=== PATIENT | male | born 1970 | race Caucasian/White ===

== ENCOUNTER 2018-08-01 16:32 | Emergency (ER) | payer OTHER ==
[2018-08-01] MEDS: SOD CHLORIDE 0.9% 1,000 ML IV (21:03)
[2018-08-01] MEDS: ONDANSETRON 4 MG INJ IV (21:03)
[2018-08-01] MEDS: LIDOCAINE/MYLANTA 40 ML BTL PO (21:04)
[2018-08-01] MEDS: KETOROLAC 15 MG INJ IV (21:04)
[2018-08-01] MEDS: BELLADONNA/PHENOBARBITAL TAB PO (21:05)
[2018-08-01 21:39] LABS: ADD MAN DIFF? NO
[2018-08-01 21:43] LABS: BASOPHILS % 0.6 % (0.0-2.0); EOSINOPHILS # 0.1 10^3/ul (0.0-0.5); EOSINOPHILS % 2.3 % (0.0-7.0); HEMATOCRIT 42.1 % (42.0-52.0); HEMOGLOBIN 15.1 g/dl (14.0-18.0); LYMPHOCYTES # 1.1 10^3/ul (0.8-2.9); MEAN CORPUSCULAR HEMOGLOBIN 31.5 pg (29.0-33.0); MEAN CORPUSCULAR HGB CONC 35.9 g/dl (32.0-37.0); MEAN CORPUSCULAR VOLUME 87.9 fl (82.0-101.0); MEAN PLATELET VOLUME 11.8 fl (7.4-10.4); MONOCYTE # 0.6 10^3/ul (0.3-0.9); MONOCYTES % 13.2 % (0.0-11.0); NEUTROPHIL # 2.9 10^3/ul (1.6-7.5); NEUTROPHILS % 60.5 % (39.0-77.0); PLATELET COUNT 101 10^3/UL (140-415); RED BLOOD COUNT 4.79 10^6/ul (4.70-6.10); RED CELL DISTRIBUTION WIDTH 12.4 % (11.5-14.5)
[2018-08-01 21:43] LABS: WHITE BLOOD COUNT 4.8 10^3/ul (4.8-10.8)
[2018-08-01 22:03] LABS: ALANINE AMINOTRANSFERASE 50 IU/L (13-69); ALBUMIN 4.1 g/dl (3.3-4.9); ALBUMIN/GLOBULIN RATIO 1.05; ALKALINE PHOSPHATASE 113 IU/L (42-121); ANION GAP 11 (5-13); ASPARTATE AMINO TRANSFERASE 69 IU/L (15-46); BILIRUBIN,INDIRECT 0.9 mg/dl (0-1.1); BILIRUBIN,TOTAL 0.9 mg/dl (0.2-1.3); BLOOD UREA NITROGEN 6 mg/dl (7-20); CALCIUM 9.7 mg/dl (8.4-10.2); CARBON DIOXIDE 25 mmol/L (21-31); CHLORIDE 99 mmol/L (97-110); CREATININE 0.41 mg/dl (0.61-1.24); Estimated GFR > 60 mL/min (>60); GLUCOSE 179 mg/dl (70-220); LIPASE 265 U/L (23-300); POTASSIUM 3.8 mmol/L (3.5-5.1); SODIUM 135 mmol/L (135-144)
[2018-08-01 22:15] LABS: TROPONIN-I < 0.012 ng/ml (0.000-0.120)
== END 2018-08-01 23:10 | disposition home or self-care (01) ==
LOC: E/R 16:32
DX: R07.9 Chest pain, unspecified (principal); E11.9 Type 2 diabetes mellitus without complications; Z79.84 Long term (current) use of oral hypoglycemic drugs
CPT/HCPCS: 36415; 71045; 80053; 83690; 84484; 85025; 93005; 96374; 96375; 99285-25